=== PATIENT | female | born 1980 | race Caucasian/White ===

== ENCOUNTER 2017-09-23 10:12 | Emergency (ER) | END 2017-09-23 13:26 | disposition home or self-care (01) ==

== ENCOUNTER 2017-09-25 09:34 | Emergency (ER) | END 2017-09-25 10:32 | disposition home or self-care (01) ==

== ENCOUNTER 2017-10-02 17:15 | Emergency (ER) | END 2017-10-02 18:05 | disposition home or self-care (01) ==

== ENCOUNTER 2018-03-29 09:44 | Emergency (ER) | payer MEDICAID ==
[~2018-03-29] VITALS: Wt 78.0 kg
[~2018-03-29 09:44] MED LIST: IBUP-1542 PO
[2018-03-29 09:47] VITALS: BP 116/58; PULSE 63; RESP 18
[2018-03-29] MEDS ORDERED: KETOROLAC 30 MG INJ IM STA (10:28)
[2018-03-29] MEDS ORDERED: CEPH-443 PO (12:08)
[2018-03-29] MEDS ORDERED: IBUP-1542 PO (12:08)
--- NOTE | 2018-03-29 12:13 | ERD ---
ER Documentation Chief Complaint Chief Complaint BACK PAIN X 4 DAYS, LEFT LEG LETICIA X 1 WEEK, TWISTED HPI 37-year-old female presents with multiple complaints. She had some twisting injury prior to the right knee pain. Her pain is in her right mid flank area radiating to right mid abdomen. She denies urinary complaints, fluid, . SHe is able to ambulate. ROS All systems reviewed and are negative except as per history of present illness. Medications Home Meds Active Scripts Cephalexin* (Keflex*) 500 Mg Capsule, 500 MG PO QID for 5 Days, CAP Prov:SUJEY GIBBS MD 03/29/18 Ibuprofen* (Motrin*) 600 Mg Tab, 600 MG PO Q6, #20 TAB Prov:SUJEY GIBBS MD 03/29/18 Ibuprofen* (Motrin*) 600 Mg Tab, 600 MG PO Q6, #30 TAB Prov:IBIS VELOZ PA-C 09/23/17 Reported Medications [None] No Conflict Check 06/12/12 Allergies Allergies: Coded Allergies: No Known Allergy (Verified , 06/12/12) PMhx/Soc Medical and Surgical Hx: pt denies Medical Hx, pt denies Surgical Hx History of Surgery: No Anesthesia Reaction: No Hx Neurological Disorder: No Hx Respiratory Disorders: No Hx Cardiac Disorders: No Hx Psychiatric Problems: No Hx Miscellaneous Medical Probl: No Hx Alcohol Use: No Hx Substance Use: No Hx Tobacco Use: No Smoking Status: Never smoker FmHx Family History: No diabetes, No coronary disease, No other Physical Exam Vitals Vital Signs Date Temp Pulse Resp B/P (MAP) Pulse Ox O2 O2 Flow FiO2 Time Delivery Rate 03/29/18 98.0 63 18 116/58 99 09:47 (77) Physical Exam Const: No acute distress Head: Atraumatic Eyes: Normal Conjunctiva ENT: Normal External Ears, Nose and Mouth. Neck: Full range of motion. No meningismus. Resp: Clear to auscultation bilaterally Cardio: Regular rate and rhythm, no murmurs Abd: Soft, non tender, non distended. Normal bowel sounds Skin: No petechiae or rashes Back: No midline tenderness. Mild right L2-L3 tenderness which radiates to the right mid abdomen. No tenderness McBurney's point. Ext: No cyanosis, or edema. Mild tenderness on the right lateral patellar area. No deformities, effusion, warmth, erythema, calf swelling or Homans sign. Neur: Awake and alert Psych: Normal Mood and Affect Results 24 hrs Laboratory Tests Test 03/29/18 10:30 03/29/18 10:44 Urine Color YELLOW Urine Clarity SLIGHTLY CLOUDY Urine pH 7.0 Urine Specific [place] 1.020 Urine Ketones NEGATIVE mg/dL Urine Nitrite NEGATIVE mg/dL Urine Bilirubin NEGATIVE mg/dL Urine Urobilinogen NEGATIVE mg/dL Urine Leukocyte Esterase TRACE Virgilio/ul Urine Microscopic RBC 1 /HPF Urine Microscopic WBC 1 /HPF Urine Squamous Epithelial Cells MODERATE /HPF Urine Bacteria FEW /HPF Urine Mucus FEW /HPF Urine Hemoglobin 2+ mg/dL Urine Glucose NEGATIVE mg/dL Urine Total Protein NEGATIVE mg/dl POC Beta HCG, Qualitative NEGATIVE Current Medications Medications Dose Sig/Sarah Start Time Status Last (Trade) Ordered Route PRN Stop Time Admin Dose Reason Admin Ketorolac 30 mg ONCE STAT 03/29/18 DC 03/29/18 Tromethamine IM 10:28 10:49 (Toradol) 03/29/18 10:30 Cephalexin 500 mg ONCE ONCE 03/29/18 (Keflex) PO 12:30 03/29/18 12:31 Procedures/MDM X-ray Knee 3V Interpreted by me: Bones: No fracture Joints: No dislocation Foreign body: None impression-normal right knee x-ray Shows trace leukocyte Estrace and hemoglobin. HCG is negative. Right renal ultrasound shows no evidence of hydronephrosis or acute abnormalities. Is with right mid back pain or flank pain which is mild. She has no fevers, vomiting. She also has right knee pain. Symptoms may have started after awkward movement. She may have mild musculoskeletal flank pain although given the mild findings on urine we will treat empirically with Keflex and send urine for culture. There is no signs or symptoms of significant ascending UTI, acute abdomen, appendicitis. Patient should return the next day for fevers, vomiting, worsening pain with primary care doctor this week. The patient was stable with no new complaints during the ER course. Clinically, there is no current evidence to suggest meningitis, sepsis, acute abdomen, pneumonia, stroke, acute coronary syndrome, pulmonary embolism, aortic dissection or any other emergent condition appearing to require further evaluation or hospitalization. Patient counseled regarding my diagnostic impression and care plan. Prior to discharge all questions answered. Pt agrees with treatment plan and understands strict return precautions. Pt is instructed to follow up with primary care provider within 24-48 hours. Precautionary instructions provided including instructions to return to the ER if not improving or for any worsening or changing symptoms or concerns. Departure Diagnosis: Primary Impression: Knee pain Chronicity: acute Laterality: right Qualified Codes: M25.561 - Pain in right knee Additional Impression: Back pain Back pain location: low back pain Chronicity: acute Back pain laterality: right Sciatica presence: without sciatica Qualified Codes: M54.5 - Low back pain Condition: Stable Patient Instructions: Flank Pain, Uncertain Cause, Knee Pain, Uncertain Cause [facility] Usted se casanova hecho un examen mdico de control que le indica que no est en eliane condicin que requiera tratamiento urgente en el Departamento de Emergencia. Un estudio ms profundo y el tratamiento de werner condicin pueden esperar sin ningn riesgo hasta que usted sea atendida/o en el consultorio de werner mdico o eliane clnica. Es responsabilidad suya arreglar eliane tonia para el seguimiento del earlene. MANEJO DE CONDICIONES NO URGENTES EN EL FUTURO 1) Si usted tiene un mdico de atencin primaria: Usted debera llamar a werner mdico de atencin primaria antes de venir al departamento de emergencia. Despus de las horas de consultorio, werner doctor o werner asociado/a est disponible por telfono. El mdico o enfermero de [place] en el servicio telefnico puede asesorarle por jannette medio para atender el problema, o earlene contrario se puede programar eliane tonia. 2) Si usted no tiene un mdico de atencin primaria: Llame al mdico o clnica de referencia que aparece abajo javad las horas de consultorio para hacer eliane tonia para que le vean. CLINICAS: [facility] [phone] [facility] 587 [phone] [address] [facility] [phone] [facility] [phone] [facility] [phone] [address] [facility]. [phone] [address] Additional Instructions: HAY POQUITO INFECCION EN ORINA Y VAMOSA TRATAR. X RAY Y ULTRASONIDO NORMAL. Cheque otro vez con werner doctor primario en el proximo moreno or regresa para mas o nueva simptomas. SUJEY GIBBS MD Mar 29, 2018 12:12
[2018-03-29] MEDS ORDERED: CEPHALEXIN 500 MG CAP PO ONE (12:30)
== END 2018-03-29 12:23 | disposition home or self-care (01) ==
LOC: FTE 09:44
DX: M25.561 Pain in right knee (principal); R10.9 Unspecified abdominal pain
CPT/HCPCS: 73562; 76775; 81001; 81025; 87086; J1885; Z7610; 96372

== ENCOUNTER → 2018-09-13 | Emergency (ER) | payer MEDICAID ==
[~2018-09-13] VITALS: Wt 64.0 kg
[~2018-09-13] MED LIST changes: +CEPH-443 PO; +NITR-58 PO; +PHEN-537 PO
[2018-09-13 10:08] VITALS: BP 125/58; PULSE 62; RESP 18
--- NOTE | 2018-09-13 12:58 | ERD ---
ER Documentation Chief Complaint Chief Complaint NON TRAUMATIC LOWER BACK PAIN FOR 1 WEEK. POSSIBLE FROM EXERCISE HPI Patient is a 38 years old female with no known past medical history presenting to the clinic for 1 week history of dysuria, urinary frequency, bladder fullness, suprapubic pain, and lower back pain. Patient denies fever, chills, night sweats, abdominal distention, hematochezia, vaginal bleeding, vaginal discharge, trauma or injuries. Patient admits to taking [id number] Tylenol without resolution of symptoms. ROS All systems reviewed and are negative except as per history of present illness. Medications Home Meds Active Scripts Cephalexin* (Keflex*) 500 Mg Capsule, 500 MG PO QID for 5 Days, CAP Prov:SUJEY GIBBS MD 03/29/18 Ibuprofen* (Motrin*) 600 Mg Tab, 600 MG PO Q6, #20 TAB Prov:SUJEY GIBBS MD 03/29/18 Ibuprofen* (Motrin*) 600 Mg Tab, 600 MG PO Q6, #30 TAB Prov:IBIS VELOZ PA-C 09/23/17 Reported Medications [None] No Conflict Check 06/12/12 Allergies Allergies: Coded Allergies: No Known Allergy (Verified , 06/12/12) PMhx/Soc History of Surgery: No Anesthesia Reaction: No Hx Neurological Disorder: No Hx Respiratory Disorders: No Hx Cardiac Disorders: No Hx Psychiatric Problems: No Hx Miscellaneous Medical Probl: No Hx Alcohol Use: No Hx Substance Use: No Hx Tobacco Use: No FmHx Family History: No diabetes, No coronary disease, No other Physical Exam Vitals Vital Signs Date Temp Pulse Resp B/P (MAP) Pulse Ox O2 O2 Flow FiO2 Time Delivery Rate 09/13/18 98.1 62 18 125/58 99 10:08 (80) Physical Exam Const: No acute distress Head: Atraumatic Eyes: Normal Conjunctiva Resp: Clear to auscultation bilaterally Cardio: Regular rate and rhythm, no murmurs Abd: Soft, non tender, non distended. Normal bowel sounds. Mild suprapubic tenderness. Skin: No petechiae or rashes Back: No midline or flank tenderness. Negative CVAT. Neur: Awake and alert Psych: Normal Mood and Affect Results 24 hrs Laboratory Tests Test 09/13/18 13:15 7/13/19 13:17 POC Beta HCG, Qualitative NEGATIVE Urine Color YELLOW Urine Clarity SLIGHTLY CLOUDY Urine pH 5.0 Urine Specific [place] 1.024 Urine Ketones NEGATIVE mg/dL Urine Nitrite NEGATIVE mg/dL Urine Bilirubin NEGATIVE mg/dL Urine Urobilinogen NEGATIVE mg/dL Urine Leukocyte Esterase 1+ Virgilio/ul Urine Microscopic RBC 1 /HPF Urine Microscopic WBC 2 /HPF Urine Squamous Epithelial Cells FEW /HPF Urine Bacteria FEW /HPF Urine Mucus FEW /HPF Urine Hemoglobin NEGATIVE mg/dL Urine Glucose NEGATIVE mg/dL Urine Total Protein NEGATIVE mg/dl Procedures/MDM Patient was seen and evaluated for urinary symptoms with low back pain. Ur inalysis revealed leukocyte esterase and urine WBC which is most consistent with UTI without complications. urine is negative. Patient is stable ready for discharge. Follow-up with PCP. Patient will be discharged with Macrobid and Pyridium. Departure Diagnosis: Primary Impression: UTI (urinary tract infection) Urinary tract infection type: site unspecified Hematuria presence: without hematuria Qualified Codes: N39.0 - Urinary tract infection, site not specified Condition: Stable Patient Instructions: Understanding Urinary Tract Infections (UTIs) Referrals: [facility] Additional Instructions: Paciente aconseja volver a Departamento de urgencias inmediatamente para sntomas nuevos o que empeoran . Paciente aconseja posteriores con el PCP en 2-3 suárez . Paciente verbaliza la comprehensin y est de acuerdo con el tratamiento y el curso de accin. Si el paciente no tiene ninguna de atencin primaria pueden seguir con [facility] [address] [place] [address] o [facility] + [address] [address] MARGARITO WEATHERS PA-C Sep 13, 2018 12:58
== END | disposition home or self-care (01) ==
LOC: FTE 10:03
DX: N39.0 Urinary tract infection, site not specified (principal)
CPT/HCPCS: 81001; 81025; 99283